=== PATIENT | male | born 1965 | race Caucasian/White ===

== ENCOUNTER 2024-08-27 12:33 | Inpatient (IN) | payer OTHER ==
[2024-08-27 12:57] VITALS: BMI 21.8
[2024-08-27] MEDS ORDERED: BENZOCAINE/MENTHOL (CHLORASEPTIC ) LOZENGE MM PRN (13:50)
[2024-08-27] MEDS ORDERED: NICOTINE POLACRILEX 2 MG GUM BUC PRN (13:50)
[2024-08-27] MEDS ORDERED: NALOXONE (NYS OPIOID OVERDOSE PROGRAM) 4 MG/0.1 ML SPRAY NS PRN (13:50)
[2024-08-27] MEDS ORDERED: IBUPROFEN 400 MG TABLET (FP) PO PRN (13:50)
[2024-08-27] MEDS ORDERED: IBUPROFEN 600 MG TABLET (FP) PO PRN (13:50)
[2024-08-27] MEDS ORDERED: NICOTINE POLACRILEX 2 MG LOZENGE BC PRN (13:50)
[2024-08-27] MEDS ORDERED: MAG HYDROX/AL HYDROX/SIMETH 30 ML UNIT-DOSE CUP PO PRN (13:50)
[2024-08-27] MEDS ORDERED: POLYETHYLENE GLYCOL (HEALTHYLAX) 3350 17 GM PACKET PO PRN (13:50)
[2024-08-27] MEDS ORDERED: LOPERAMIDE HCL 2 MG CAPSULE PO PRN (13:50)
[2024-08-27] MEDS ORDERED: BENZONATATE 200 MG CAPSULE PO PRN (13:50)
[2024-08-27] MEDS ORDERED: guaiFENesin 600 MG TABLET.ER (FP) PO PRN (13:50)
[2024-08-27] MEDS ORDERED: MAGNESIUM HYDROX 2400MG/30ML ORAL SUSPENSION 30 ML CUP PO PRN (13:50)
[2024-08-27] MEDS: metFORMIN HCL 500 MG TABLET (FP) PO SCH (17:25)
[2024-08-27] MEDS: MELATONIN 5 MG TABLETS PO SCH (22:06)
[2024-08-27] MEDS: ATORVASTATIN CA 40 MG TABLET (FP) PO SCH (22:06)
[2024-08-27] MEDS: THIAMINE 100 MG TABLET PO SCH (22:06)
[2024-08-28] MEDS: CLOPIDOGREL BISULFATE 75 MG TABLET (FP) PO SCH (09:16)
[2024-08-28] MEDS: ASPIRIN 81 MG CHEWABLE TABLETS PO SCH (09:16)
[2024-08-28] MEDS: PRENATAL VITAMINS W/ FOLIC ACID TABLET (FP) PO SCH (09:16)
[2024-08-28] MEDS: LISINOPRIL 20 MG TABLET PO SCH (09:16)
[2024-08-28 12:07] LABS: HEMATOCRIT 40.5 % (35.4-49); HEMOGLOBIN 13.4 GM/dL (11.7-16.9); MCH 30.6 pg (25.7-33.7); MCHC 33.1 g/dl (32.0-35.9); MEAN CELL VOLUME 92.5 fl (80-96); MEAN PLT VOLUME 9.8 fl (7.5-11.1); PLATELET COUNT 240 10^3/uL (134-434); RBC 4.38 M/mm3 (4.00-5.60); RDW 15.4 % (11.9-15.9)
[2024-08-28 12:08] LABS: EPI CELLS 7 /uL (0-25.1); HYALINE CASTS 1 /uL (0-3.1); URINE APPEARANCE CLOUDY; URINE BACTERIA 127 /uL (0-1359); URINE BILIRUBIN NEGATIVE (NEGATIVE); URINE COLOR YELLOW; URINE GLUCOSE (UA) NEGATIVE (NEGATIVE); URINE KETONE NEGATIVE (NEGATIVE); URINE LEUK ESTERASE TRACE (NEGATIVE); URINE NITRITE NEGATIVE (NEGATIVE); URINE PROTEIN NEGATIVE (NEGATIVE); URINE RBC 5 /uL (0-23.9); URINE WBC 9 /uL (0-25.8)
[2024-08-28] MEDS: FLU VACCINE (FLULAVAL) PF 45 MCG/0.5 ML SYRINGE 2024-2025 IM ONE (12:24)
[2024-08-28 12:41] LABS: ALBUMIN 3.6 g/dl (3.4-5.0); BLOOD UREA NITROGEN 13.5 mg/dL (7-18); CALCIUM 9.7 mg/dL (8.5-10.1)
[2024-08-28 12:45] LABS: BILIRUBIN,TOTAL 0.7 mg/dL (0.2-1); CREATININE 1.1 mg/dL (0.55-1.3); TOT PROT 7.2 g/dl (6.4-8.2)
[2024-08-31] MEDS: GABAPENTIN 100 MG CAPSULE PO SCH (13:56)
[2024-09-02] MEDS: diazePAM 5 MG TABLET PO ONE (19:38)
[2024-09-03] MEDS: ACETAMINOPHEN 325 MG TABLET (FP) PO PRN (17:36)
[2024-09-06 07:05] VITALS: TEMP 97.8
[2024-09-06 08:59] VITALS: BP 132/55; PULSE 62; RESP 18
[2024-09-06] MEDS: NALOXONE (NYS OPIOID OVERDOSE PROGRAM) 4 MG/0.1 ML SPRAY NS SCH (15:14)
== END 2024-09-06 15:26 | disposition left against medical advice (07) | DRG 895 ==
LOC: YASAS 12:33 → Y3NR 16:15 → Y3W 08-28 09:49
PROVIDERS: ADMIT Psychiatry & Neurology Pain Medicine; ATTEND Psychiatry & Neurology Pain Medicine
PROC: HZ42ZZZ Group Counseling for Substance Abuse Treatment, Cognitive-Behavioral (ICD-10-PCS; principal; 2024-08-27)
DX: F14.20 Cocaine dependence, uncomplicated (principal); F17.210 Nicotine dependence, cigarettes, uncomplicated; F31.9 Bipolar disorder, unspecified; F41.9 Anxiety disorder, unspecified; E78.5 Hyperlipidemia, unspecified; I10 Essential (primary) hypertension; E11.9 Type 2 diabetes mellitus without complications; Z79.84 Long term (current) use of oral hypoglycemic drugs; M54.2 Cervicalgia; G89.29 Other chronic pain; Z86.73 Personal history of transient ischemic attack (TIA), and cerebral infarction without residual deficits; Z86.19 Personal history of other infectious and parasitic diseases; F91.8 Other conduct disorders; Z91.199 Patient's noncompliance with other medical treatment and regimen due to unspecified reason; Z88.0 Allergy status to penicillin
CPT/HCPCS: 36415; 80053; 80305; 80307; 81003; 82962; 85027; 86780; 87811; 90656; 93005; 93010; G0008

== ENCOUNTER 2024-08-29 11:54 | Emergency (ER) | payer OTHER ==
[2024-08-29 12:25] VITALS: BP 133/66; PULSE 55; RESP 17; TEMP 97.8; BMI 23.3
[2024-08-29] MEDS ORDERED: ACETAMINOPHEN 500 MG TABLET (FP) ONE (13:12)
[2024-08-29 13:13] LABS: BASO % 0.8 % (0-2.0); HEMATOCRIT 38.9 % (35.4-49); LYMPH % 23.4 % (8-40); MCH 30.5 pg (25.7-33.7); MCHC 33.5 g/dl (32.0-35.9); MEAN CELL VOLUME 91.1 fl (80-96); MONO % 9.6 % (3.8-10.2); NEUT % 63.2 % (42.8-82.8); PLATELET COUNT 215 10^3/uL (134-434); RBC 4.27 M/mm3 (4.00-5.60); RDW 14.9 % (11.9-15.9); WHITE BLOOD COUNT 10.7 K/mm3 (4.0-10.0)
[2024-08-29] MEDS: ACETAMINOPHEN 500 MG TABLET (FP) PO ONE (13:16)
[2024-08-29 13:31] LABS: POTASSIUM 3.8 mmol/L (3.5-5.1)
[2024-08-29 13:33] LABS: CALCIUM 9.6 mg/dL (8.5-10.1)
[2024-08-29 13:35] LABS: ALBUMIN 3.6 g/dl (3.4-5.0); BLOOD UREA NITROGEN 14.1 mg/dL (7-18); MAGNESIUM 1.9 mg/dL (1.8-2.4)
[2024-08-29 13:38] LABS: BILIRUBIN,TOTAL 0.4 mg/dL (0.2-1); TOT PROT 7.1 g/dl (6.4-8.2)
[2024-08-29 14:10] LABS: INR 0.99 (0.83-1.09); PROTHROMBIN TIME (PATIENT) 11.2 SEC (9.7-13.0)
[2024-08-29 14:13] LABS: ACTIVATED PTT 30.6 SECONDS (25.2-36.5)
== END 2024-08-29 16:42 | disposition home or self-care (01) ==
LOC: JER 11:54
DX: R20.2 Paresthesia of skin (principal); R20.0 Anesthesia of skin; R29.810 Facial weakness
CPT/HCPCS: 36415; 70450-TC; 70551-TC; 71045-TC-FY; 80053; 82550; 82962; 83735; 84100; 84484; 85025; 85610; 85730; 93005; 93010; 99285-25